=== PATIENT | female | born 1985 | race Caucasian/White ===

== ENCOUNTER 2017-02-13 10:06 | Emergency (ER) | payer OTHER ==
[2017-02-13 10:37] VITALS: BP 127/68
--- NOTE | 2017-02-13 11:56 | UC ---
Dental HPI - HPI Summary HPI Summary: 1-2 DAYS OF WORSENING PAIN UPPER FRONT TEETH AND UPPER LEFT TEETH. HAS DIFFUSELY POOR DENTITION. HAS APPT FOR DENTAL WORK ON 03/05/17. NO FEVERS. IBUPROFEN NOT WORKING LIKE IT NORMALLY DOES. ALSO REPORTS HER JAW POPPED OUT OF JOINT AND THEN BACK IN A COUPLE OF DAYS AGO. NO TRIGGER. HASN'T HAPPENED BEFORE OR SINCE. - History of Current Complaint Chief Complaint: UCDentalProblem Stated Complaint: DENTAL PAIN Time Seen by Provider: 02/13/17 11:16 Hx Obtained From: Patient Hx Last Menstrual Period: 01/18/17 Onset/Duration: Gradual Onset, Lasting Days Severity: Moderate Pain Intensity: 7 Pain Scale Used: 0-10 Numeric Aggravating Factor(s): Heat, Cold, Chewing Alleviating Factor(s): Nothing Related History: TMJ Dysfunction, Previous Dental Care on Same Tooth - Allergies/Home Medications Allergies/Adverse Reactions: Allergies Allergy/AdvReac Type Severity Reaction Status Date / Time Amoxicillin Allergy Unknown Unknown Verified 02/13/17 10:20 Reaction Details Azithromycin [From Zithromax] Allergy Rash Verified 02/13/17 10:20 Cefaclor [From Ceclor] Allergy Unknown Verified 02/13/17 10:20 Reaction Details Cephalexin [From Keflex] Allergy Unknown Verified 02/13/17 10:20 Reaction Details Doxycycline Allergy Unknown Verified 02/13/17 10:20 Reaction Details PMH/Surg Hx/FS Hx/Imm Hx Previously Healthy: Yes - Surgical History Surgical History: Yes Surgery Procedure, Year, and Place: c section - Family History Known Family History: Positive: Hypertension - Social History Alcohol Use: Rare Substance Use Type: None Smoking Status (MU): Former Smoker Type: Cigarettes Amount Used/How Often: 1/2 ppd Length of Time of Smoking/Using Tobacco: 9 years Have You Smoked in the Last Year: Yes Household Exposure Type: Cigarettes Review of Systems Constitutional: Negative ENT: Dental Pain Respiratory: Negative Cardiovascular: Negative Gastrointestinal: Negative All Other Systems Reviewed And Are Negative: Yes Physical Exam Triage Information Reviewed: Yes Appearance: Well-Appearing, No Pain Distress, Well-Nourished Vital Signs: Initial Vital Signs Temp 98.2 F 02/13/17 10:13 Pulse 71 02/13/17 10:13 Resp 16 02/13/17 10:13 BP 163/87 02/13/17 10:13 Pulse Ox 99 09/27/17 10:13 Vital Signs Reviewed: Yes Eyes: Positive: Conjunctiva Clear ENT: Positive: Hearing grossly normal Dental: Positive: Percussion Tenderness @ - DIFFUSELY, Gross Decay/Caries @ - DIFFUSELY. Negative: Cervical Lymphadenopathy, Bleeding Neck: Positive: Supple, Nontender, No Lymphadenopathy Respiratory: Positive: No respiratory distress, No accessory muscle use Cardiovascular: Positive: Pulses Normal Abdomen Description: Positive: Soft Musculoskeletal: Positive: No Edema Neurological: Positive: Alert Psychological: Negative: Age Appropriate Behavior Skin: Negative: rashes Dental Complaint Course/Dx - Differential Dx/Diagnosis Provider Diagnoses: DIFFUSE DENTAL DECAY Discharge - Discharge Plan Condition: Stable Disposition: HOME Prescriptions: Chlorhexidine MW 0.12% 473ML* [Peridex Mouth Wash 0.12%*] 15 ml SWISH SPIT BID # 1 bottle Clindamycin Cap(NF) [Clindamycin Cap 300 mg Cap(NF)] 300 mg PO Q6H #40 cap Hydrocodone-Acetaminophen [Lorcet 5-325 mg] 1 tab PO QID PRN #20 tab MDD 4 PRN Reason: Pain Patient Education Materials: Toothache (ED) Referrals: Jin Germain PA [Primary Care Provider] - If Needed Additional Instructions: KEEP YOUR DENTAL APPT NEXT MONTH.
== END 2017-02-13 11:53 | disposition home or self-care (01) ==
LOC: UCEAST 10:06
DX: K02.9 Dental caries, unspecified (principal); Z88.1 Allergy status to other antibiotic agents; Z87.891 Personal history of nicotine dependence
CPT/HCPCS: 99212; G0463

== ENCOUNTER 2017-05-17 13:58 | Emergency (ER) | payer OTHER ==
[2017-05-17 14:28] VITALS: BP 147/68
--- NOTE | 2017-05-17 15:09 | UC ---
Throat Pain/Nasal [place] HPI - HPI Summary HPI Summary: Pt presents with ST and dry cough for the last week. She tells me that her daughter was dx'd with strep 2 weeks ago. Pt has been waking up in the mornings with a dry throat and throughout the day has had a nonproductive cough. She has not been taking anything OTC. Has felt feverish at times, but has not taken her temperature. Denies fever, chills, sinus symptoms, SOB, chest pain, abdominal pain, N/V/d/C. - History of Current Complaint Chief Complaint: UCRespiratory Stated Complaint: SORE THROAT Time Seen by Provider: 05/17/17 15:02 Hx Obtained From: Patient Hx Last Menstrual Period: 04/30/17 Onset/Duration: Gradual Onset Cough: Nonproductive - Allergies/Home Medications Allergies/Adverse Reactions: Allergies Allergy/AdvReac Type Severity Reaction Status Date / Time Amoxicillin Allergy Unknown Unknown Verified 05/17/17 14:20 Reaction Details Azithromycin [From Zithromax] Allergy Rash Verified 05/17/17 14:20 Cefaclor [From Ceclor] Allergy Unknown Verified 05/17/17 14:20 Reaction Details Cephalexin [From Keflex] Allergy Unknown Verified 05/17/17 14:20 Reaction Details Doxycycline Allergy Unknown Verified 05/17/17 14:20 Reaction Details Home Medications: Home Medications Citalopram TAB* [CeleXA TAB*] 40 mg PO DAILY 05/17/17 [History Confirmed ] PMH/Surg Hx/FS Hx/Imm Hx Psychological History: Anxiety, Depression - Surgical History Surgical History: Yes Surgery Procedure, Year, and Place: c section - Family History Known Family History: Positive: Hypertension - Social History Occupation: Employed Full-time Lives: With Family Alcohol Use: Rare Substance Use Type: None Smoking Status (MU): Former Smoker Type: Cigarettes Amount Used/How Often: 1/2 ppd Length of Time of Smoking/Using Tobacco: 9 years Have You Smoked in the Last Year: Yes Household Exposure Type: Cigarettes Review of Systems Constitutional: Negative Skin: Negative Eyes: Negative ENT: Sore Throat Respiratory: Cough Cardiovascular: Negative Gastrointestinal: Negative All Other Systems Reviewed And Are Negative: Yes Physical Exam Triage Information Reviewed: Yes Appearance: Well-Appearing, Obese Vital Signs: Initial Vital Signs Temp 98.2 F 05/17/17 14:16 Pulse 79 05/17/17 14:16 Resp 18 05/17/17 14:16 BP 147/68 05/17/17 14:16 Pulse Ox 99 05/17/17 14:16 Vital Signs Reviewed: Yes Eyes: Positive: Conjunctiva Clear. Negative: Conjunctiva Inflamed, Discharge ENT: Positive: Hearing grossly normal, Pharynx normal, TMs normal, Uvula midline. Negative: Pharyngeal erythema, Nasal congestion, Nasal drainage, TM bulging, TM dull, TM red, Tonsillar swelling, Tonsillar exudate, Hoarse voice, Sinus tenderness Neck: Positive: Supple, Nontender, No Lymphadenopathy Respiratory: Positive: Chest non-tender, Lungs clear, Normal breath sounds, No respiratory distress, No accessory muscle use Cardiovascular: Positive: RRR, No Murmur, Pulses Normal Neurological: Positive: Alert Psychological: Positive: Age Appropriate Behavior Skin: Negative: rashes Throat Pain/Nasal Course/Dx - Course Course Of Treatment: POC strep negative. Pt advised to try conservative measures such as ibuprofen, throat gargles, and OTC mucinex. Will rx for tessalon for her cough. - Differential Dx/Diagnosis Differential Diagnosis/HQI/PQRI: Pharyngitis, Tonsillitis, URI Provider Diagnoses: Sore throat. Cough Discharge - Discharge Plan Condition: Stable Disposition: HOME Prescriptions: Benzonatate CAP* [Tessalon 100 MG CAP*] 100 mg PO TID PRN #30 cap PRN Reason: Cough Patient Education Materials: Pharyngitis (ED) Referrals: Jin Germain PA [Primary Care Provider] - Additional Instructions: If you develop a fever, shortness of breath, chest pain, new or worsening symptoms - please call your PCP or go to the ED. Your blood pressure was high at todays visit. Please see your primary provider within 4 weeks for recheck and re-evaluation.
== END 2017-05-17 15:20 | disposition home or self-care (01) ==
LOC: UCEAST 13:58
DX: J02.9 Acute pharyngitis, unspecified (principal); R05 Cough; Z88.0 Allergy status to penicillin; Z88.1 Allergy status to other antibiotic agents; Z87.891 Personal history of nicotine dependence
CPT/HCPCS: 87651; 99211; G0463